=== PATIENT | male | born 1990 | race Caucasian/White ===

== ENCOUNTER 2023-11-15 14:40 | Emergency (ER) | payer OTHER ==
[~2023-11-15] VITALS: Ht 180.3 cm; Wt 65.8 kg
[2023-11-15 14:46] VITALS: TEMP 98.3
[2023-11-15] MEDS ORDERED: IBUP-1953 PO (16:18)
[2023-11-15] MEDS ORDERED: CYCL15CA23 PO (16:18)
[2023-11-15 16:22] VITALS: BP 126/71; O2SAT 97
== END 2023-11-15 16:23 | disposition home or self-care (01) ==
LOC: ER 14:46
DX: M54.50 Low back pain, unspecified (principal); J45.909 Unspecified asthma, uncomplicated
CPT/HCPCS: 72131-TC